=== PATIENT | female | born 1985 | race Caucasian/White ===

== ENCOUNTER 2019-03-10 08:59 | Emergency (ER) | payer OTHER ==
[2019-03-10 08:59] VITALS: Ht 167.6 cm
[~2019-03-10 08:59] MED LIST: ACTONEL150 MG PO; ADV500/50; ALIGN4 M1 PO; ALLER-CHLOR4 MG PO; ANUCORT-HC25 MG RC; ATENOLOL25 MG PO; ATIVAN1 MG PO; BYDUREON2 M1 SQ; CALCIUM WITH D PO; CLOTRIMAZOLE1% TOP; DERMA SMOOTHE; DIAZEPAM5 MG PO; FLORASTOR250 MG PO; KEPPRA500 MG; LANSOPRAZOLE30 M2 PO; LOVAZA1 G1; LUNESTA3 MG PO; LYRICA75 M1 PO; METFORMIN HCL1000 MG; METHADONE HCL10 MG; OXYCODONE HYDROC5 M2 PO; PREDNISONE20 MG PO; SINGULAIR10 MG; SPIRIVA18 MC1; TIZANIDINE HCL4 MG PO; TOPICORT0.25% TOP; XOPENEX1.25 MG/3 NEB
[2019-03-10 09:30] VITALS: BP 84/38
[2019-03-10 09:37] LABS: ALKALINE PHOSPHATASE 97 U/L (46-116); ALT/SGPT 22 U/L (14-59); AST/SGOT 11 U/L (15-37); BILIRUBIN TOTAL 0.1 mg/dL (0.20-1.00); CALCIUM 8.2 mg/dL (8.5-10.1); CHLORIDE SERUM 104 mmol/L (98-107); CREATININE SERUM 0.9 mg/dL (0.6-1.0); GFR1 > 60 mL/min; SODIUM SERUM 142 mmol/L (136-145)
[2019-03-10 09:40] LABS: ALBUMIN 3.2 g/dL (3.4-5.0); GLUCOSE SERUM 474 mg/dL (74-106); POTASSIUM SERUM 5.9 mmol/L (3.5-5.1)
[2019-03-10 10:11] LABS: PLATELET COUNT 206 x10^3mcL (130-400); RED CELL DISTRIBUTION WIDTH 14.3 % (11.5-14.5)
[2019-03-10 10:13] LABS: BASOPHIL % 0 % (0-2)
--- NOTE | 2019-03-10 10:45 | NUR ---
PER DR APONTE AND ABG RESULT INCREASE RR TO 20 AND TITRATED FIO2 FROM 60 TO 40%.
[2019-03-10 12:35] VITALS: BP 109/79
== END 2019-03-10 12:35 | disposition short-term general hospital (02) ==
LOC: ED 08:59
PROVIDERS: Emergency Medicine
DX: I62.9 Nontraumatic intracranial hemorrhage, unspecified (principal); R41.82 Altered mental status, unspecified; J18.9 Pneumonia, unspecified organism; J96.90 Respiratory failure, unspecified, unspecified whether with hypoxia or hypercapnia; E87.5 Hyperkalemia; G82.20 Paraplegia, unspecified; I10 Essential (primary) hypertension; E11.9 Type 2 diabetes mellitus without complications; Z88.1 Allergy status to other antibiotic agents; Z88.0 Allergy status to penicillin
CPT/HCPCS: 31500; 36600; G0480; J1815; J1940; J2543; J2704; J3490; J7030; J7613; Q0092